=== PATIENT | female | born 1990 | race Caucasian/White ===

== ENCOUNTER 2017-01-05 15:48 | Outpatient (CLI) | payer OTHER ==
[2017-01-05 16:13] VITALS: BMI 29.2
[2017-01-05 17:12] LABS: SPECIFIC GRAVITY 1.015 (1.001-1.030); URINE BILIRUBIN NEGATIVE (NEGATIVE); URINE BLOOD NEGATIVE (NEGATIVE); URINE GLUCOSE (UA) 2+ (NEGATIVE); URINE LEUKOCYTE ESTERASE NEGATIVE (NEGATIVE); URINE NITRITE NEGATIVE (NEGATIVE); URINE PROTEIN NEGATIVE (NEGATIVE); URINE UROBILINOGEN NORMAL (0-1 mg/dl)
[2017-01-05 17:13] LABS: URINE COLOR YELLOW
[2017-01-05 17:14] LABS: URINE APPEARANCE HAZY
== END 2017-01-05 18:05 | disposition home or self-care (01) ==
LOC: FBC 15:48 → FBCOUT 15:48
PROVIDERS: ATTEND Family Medicine
DX: O47.9 False labor, unspecified (principal); Z3A.00 Weeks of gestation of pregnancy not specified
CPT/HCPCS: 81003; 59025; G0463

== ENCOUNTER 2017-02-10 01:35 | Outpatient (CLI) | payer OTHER ==
[2017-02-10 03:14] VITALS: BMI 30.7
[2017-02-10] MEDS ORDERED: MORPHINE SULFATE 10 MG/ML SYRINGE IM ONE (04:50)
[2017-02-10] MEDS ORDERED: PROMETHAZINE HCL 25 MG/ML VIAL IM ONE (04:50)
== END 2017-02-10 06:14 | disposition home or self-care (01) ==
LOC: FBC 01:35 → FBCOUT 01:35 → FBC 05:44 → FBCOUT 05:44
PROVIDERS: ATTEND Advanced Practice Midwife
DX: O26.899 Other specified pregnancy related conditions, unspecified trimester (principal); R10.9 Unspecified abdominal pain; Z3A.00 Weeks of gestation of pregnancy not specified
CPT/HCPCS: 59025; J2270; J2550; G0463

== ENCOUNTER 2017-02-10 09:45 | Inpatient (IN) | payer OTHER ==
[2017-02-10] MEDS ORDERED: PUMP TUBING ONE (09:59)
[2017-02-10] MEDS ORDERED: IV START KIT ONE (09:59)
[2017-02-10] MEDS ORDERED: MINERAL OIL 25 ML BOT ONE (09:59)
[2017-02-10] MEDS ORDERED: OXYTOCIN IN LR 500 ML IV ONE (09:59)
[2017-02-10] MEDS ORDERED: LIDOCAINE Viscous 2% 15 ML UDCUP ONE (09:59)
[2017-02-10] MEDS ORDERED: OXYTOCIN 10 UNITS/ML VIAL ONE (09:59)
[2017-02-10] MEDS ORDERED: LIDOCAINE 1% (PRES FREE) 30 ML VIAL ONE (09:59)
[2017-02-10] MEDS ORDERED: LACTATED RINGERS 1,000 ML ONE (10:00)
[2017-02-10] MEDS ORDERED: LACTATED RINGERS 1,000 ML IV PRN (10:00)
[2017-02-10] MEDS ORDERED: OXYTOCIN IN LR 334 ML IV ONE (10:00)
[2017-02-10 10:34] LABS: HEMATOCRIT 35.2 % (37.0-47.0); HEMOGLOBIN 12.5 gm/l (12.0-16.0); MEAN CELL VOLUME 93.9 fl (81.0-99.0); MEAN CORPUSCULAR HEMOGLOBIN 33.3 pg (27.0-31.0); MEAN CORPUSCULAR HGB CONC 35.5 g/dl (33.0-37.0); RED CELL DISTRIBUTION WIDTH 12.1 % (11.5-14.5)
[2017-02-10] MEDS ORDERED: LANOLIN 50 APPLIC/7G TUBE TP PRN (10:57)
[2017-02-10] MEDS ORDERED: CALCIUM CARBONATE 500 MG TAB.CHEW PO PRN (10:57)
[2017-02-10] MEDS ORDERED: MAGNESIUM HYDROXIDE 30 ML UDCUP PO PRN (10:57)
[2017-02-10] MEDS ORDERED: BENZOCAINE/MENTHOL 60 APPLIC/BOT TP PRN (10:57)
[2017-02-10] MEDS ORDERED: ACETAMINOPHEN 325 MG TABLET PO PRN (10:57)
[2017-02-10] MEDS: IBUPROFEN 800 MG TABLET PO PRN ×2 (11:06→18:19)
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
[2017-02-10 11:27] VITALS: BMI 30.7
--- NOTE | 2017-02-10 11:44 | PCMDEL ---
Delivery Note - Labor 1st stage (hr/min):: 41 mins 2nd stage (hr/min):: 14 mins 3rd stage (hr/min):: 6 mins Total (hr/min):: 55 mins Pushed (hr/min):: 14 mins - Delivery Delivery (Date): 02/10/17 Delivery (Time): 10:22 Gender: Male Presentation: Cephalic Position: OA Umbilical Cord: 3 Vessel Delayed Cord Clamping:: 2-3 min 1 Minute Total: 8 5 Minute Total: 9 Placenta:: spontaneous, shultze, grossly intact EBL:: 175 Perineum:: intact Suture:: none Anesthesia/Meds:: none Length ROM:: 11 mins Comments:: First Stage: Padmini was triaged last night for over 3 hours and was sent home with therapeutic rest after over 3 hours of no cervical change. She presented this morning at [facility] in spontaneous active labor with SVE of 8/100% /-1. She is supported by her partner, Delvis, her [id number] and her mother. She was admitted and progressed rapidly to complete. Fetus Cat 1 throughout first stage Second Stage: Padmini pushed well in semi-weber's with good descent and without any pain medications. SROM of moderate amount light meconium. During pushing variable decelerations to 80s and 90 were auscultated with the cEFM. Between contractions they resolved quickly back to baseline. With controlled delivery of the head supported by CNM and FOB, the head was born, OA to LOT. No nuchal cord was palpated. Anterior shoulder did not readily emerge. After Noah and suprapubic pressure the infant restituted to OP. With Tamez's maneuver and maternal effort, the anterior shoulder emerged and the body of the infant delivered easily. CNM and FOB placed vigorous male on maternal abdomen. Third Stage: Cord was cut between 2-3 minutes of life when spontaneous separation of the placenta was noted and the cord was no longer pulsing. Cord blood obtained. Placenta delivered with Ruiz Tovar maneuver, and gentle cord traction, shultze, grossly intact. AMTSL was not initiated. Vaginal vault and perineum inspected and found to be without laceration. First degree right and left labial lacerations were noted to be well-approximated and hemostatic. These were not sutured. Post delivery count correct. to breast within first 30 minutes after delivery. Mother and baby both in good condition. QBL 175mL.
[2017-02-10] MEDS ORDERED: ONDANSETRON 4 MG/2ML 2 ML VIAL IV ONE (12:14)
[2017-02-10] MEDS ORDERED: HYDROCODONE/ACETAMINOPHEN 5/325MG TABLET PO PRN (12:15)
[2017-02-10 16:30] LABS: AMPHETAMINES/METHAMPHETAMINES NEGATIVE (NEGATIVE); COCAINE NEGATIVE (NEGATIVE); MARIJUANA POSITIVE (NEGATIVE); METHADONE NEGATIVE (NEGATIVE); OPIATES POSITIVE (NEGATIVE); TRICYCLIC ANTIDEPRESSANTS NEGATIVE (NEGATIVE)
[2017-02-11 06:41] LABS: HEMATOCRIT 31.9 % (37.0-47.0); HEMOGLOBIN 11.2 gm/l (12.0-16.0)
[2017-02-11] MEDS ORDERED: RHOGAM 300 MCG SYRINGE IM ONE (07:25)
[2017-02-11] MEDS: DOCUSATE SODIUM 100 MG CAPSULE PO SCH (11:30)
[2017-02-11] MEDS: IBUPROFEN 800 MG TABLET PO PRN ×2 (11:30→22:09)
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
--- NOTE | 2017-02-12 06:57 | PDOC39B ---
Hospital Course: ADMIT DATE: 02/10/17 DISCHARGE DATE: 02/12/17 ADMISSION DIAGNOSES: Active Labor PROCEDURES: HISTORY OF PRESENT ILLNESS: 26 year old G2 T1 L1 at 40 weeks 0 days presenting with active labor. HOSPITAL COURSE: First Stage: Padmini was triaged last night for over 3 hours and was sent home with therapeutic rest after over 3 hours of no cervical change. She presented this morning at [facility] in spontaneous active labor with SVE of 8/100% /-1. She is supported by her partner, Delvis, her [id number] and her mother. She was admitted and progressed rapidly to complete. Fetus Cat 1 throughout first stage Second Stage: Padmini pushed well in semi-weber's with good descent and without any pain medications. SROM of moderate amount light meconium. During pushing variable decelerations to 80s and 90 were auscultated with the cEFM. Between contractions they resolved quickly back to baseline. With controlled delivery of the head supported by CNM and FOB, the head was born, OA to LOT. No nuchal cord was palpated. Anterior shoulder did not readily emerge. After Noah and suprapubic pressure the infant restituted to OP. With Tamez's maneuver and maternal effort, the anterior shoulder emerged and the body of the infant delivered easily. CNM and FOB placed vigorous male on maternal abdomen. Third Stage: Cord was cut between 2-3 minutes of life when spontaneous separation of the placenta was noted and the cord was no longer pulsing. Cord blood obtained. Placenta delivered with Ruiz Tovar maneuver, and gentle cord traction, shultze, grossly intact. AMTSL was not initiated. Vaginal vault and perineum inspected and found to be without laceration. First degree right and left labial lacerations were noted to be well-approximated and hemostatic. These were not sutured. Post delivery count correct. to breast within first 30 minutes after delivery. Mother and baby both in good condition. QBL 175mL. : recovery was uncomplicated. Pain was well controlled and bleeding has continued to decrease. She desires to go home today. Following therapeutic rest prior to labor admit, she had a positive UDS and has been visited by social work. She states she has been up ad fernando to void without issue. She is well with a good latch and has been doing significant skin to skin time. By day of discharge the patient is stable, well and ready to go home. - Physical Exam Vital Signs: Temp Pulse Resp BP Pulse Ox 98.3 F 70 18 105/56 02/12/17 05:41 02/12/17 05:41 02/12/17 05:41 02/12/17 05:41 General: Afebrile Psych/Mental Status: Mood/Affect Appropriate, Judgment/Insight Intact, Bonding Well Neurological: Grossly Intact, Alert, Oriented x 4, Normal Speech HEENT: Mucous membr. moist/pink Lungs: Clear to Auscultation Bilaterally Cardiovascular: Regular Rate and Rhythm Breast: Soft, Skin intact, Nipples Intact Fundus: Firm, Midline, Below Umbilicus Lochia: Light - Discharge Diagnosis (1) (normal spontaneous vaginal delivery) Status: AcuteAssessment/Plan: A: day #2 s/p Exclusive Appropriate for discharge P: Reviewed warning s.s and when to call providers Handout given and reviewed Plans to follow up with [facility] and patch or paragard at 6wks for contraception. Discharge to home in stable condition - Discharge Plan Condition: Stable Disposition: Home Instruction Forms: Vaginal Discharge Instructions Additional Instructions: Midwifery 'After the ' handout given to patient. Follow-Up: [facility] [Outside]
[2017-02-12 09:12] VITALS: BP 112/58
[2017-02-12] MEDS: DOCUSATE SODIUM 100 MG CAPSULE PO SCH (09:22)
[2017-02-12] MEDS: IBUPROFEN 800 MG TABLET PO PRN (09:22)
== END 2017-02-12 10:32 | disposition home or self-care (01) | DRG 775 ==
LOC: FBCOUT 09:45 → FBC 09:46 → FBCOUT 10:00 → FBC 10:00
PROVIDERS: ADMIT Advanced Practice Midwife; ATTEND Advanced Practice Midwife
PROC: 10E0XZZ Delivery of Products of Conception, External Approach (ICD-10-PCS; principal; 2017-02-10)
DX: O62.3 Precipitate labor (principal); O99.323 Drug use complicating pregnancy, third trimester; O70.0 First degree perineal laceration during delivery; F12.90 Cannabis use, unspecified, uncomplicated; O99.334 Smoking (tobacco) complicating childbirth; F17.210 Nicotine dependence, cigarettes, uncomplicated; O62.1 Secondary uterine inertia; Z37.0 Single live birth; Z3A.40 40 weeks gestation of pregnancy